=== PATIENT | male | born 1940 | race Two or more races ===

== ENCOUNTER 2020-10-15 20:14 | Emergency (ER) | payer OTHER ==
[~2020-10-15] VITALS: Ht 188 cm; Wt 108.9 kg
[2020-10-15] MEDS ORDERED: METOPROLOL SUCC25 MG (20:29)
[2020-10-15] MEDS ORDERED: LOSARTAN POTASS25 MG (20:29)
[2020-10-16] MEDS ORDERED: CIPRO500 MG PO (02:28)
[2020-10-16] MEDS ORDERED: URETRON D-S TAB1 TAB PO (02:28)
[2020-10-16] MEDS ORDERED: NEURONTIN300 MG PO (02:54)
== END 2020-10-16 02:56 | disposition home or self-care (01) ==
LOC: ER 20:14
DX: R10.84 Generalized abdominal pain (principal); R20.0 Anesthesia of skin; R20.8 Other disturbances of skin sensation; N39.0 Urinary tract infection, site not specified